=== PATIENT | female | born 1975 | race Asian ===

== ENCOUNTER 2017-01-03 11:09 | Emergency (ER) | payer OTHER ==
[~2017-01-03] VITALS: Ht 154.9 cm; Wt 65.3 kg
[2017-01-03] MEDS ORDERED: ONDANSETRON 4 MG TAB.RAPDIS ONE (11:50)
[2017-01-03] MEDS ORDERED: TDAP [DIPH/PERTUSSIS/TET] 0.5 ML VIAL IM ONE ×2 (11:50→12:00)
[2017-01-03] MEDS ORDERED: HYDROCODONE/APAP 5/325MG 1 EACH TABLET ONE (11:50)
[2017-01-03] MEDS ORDERED: HYDROCODONE/APAP 5/325MG 1 EACH TABLET PO ONE (12:00)
[2017-01-03] MEDS ORDERED: ONDANSETRON 4 MG TAB.RAPDIS PO ONE (12:00)
[2017-01-03 13:08] VITALS: BP 119/61
== END 2017-01-03 13:10 | disposition home or self-care (01) ==
LOC: ER 11:14
DX: S91.312A Laceration without foreign body, left foot, initial encounter (principal); S63.614A Unspecified sprain of right ring finger, initial encounter; S63.616A Unspecified sprain of right little finger, initial encounter; Z23 Encounter for immunization; W11.XXXA Fall on and from ladder, initial encounter; Y93.89 Activity, other specified; Y92.89 Other specified places as the place of occurrence of the external cause; Y99.9 Unspecified external cause status
CPT/HCPCS: 73130-TC; 73630-TC; 90715; A4606; A6402; Q0162; Z7610